=== PATIENT | female | born 1955 | race Caucasian/White ===

== ENCOUNTER 2021-08-12 14:28 | Outpatient (CLI) | payer BC, SELFPAY ==
--- NOTE | ~2021-08-12 | US_ITS ---
EXAMINATION: US venous doppler [facility] EXAM DATE: 08/12/2021 15:01 INDICATION: Left leg pain and swelling. TECHNIQUE: Multiple grayscale, color flow and Doppler images of the left lower extremity deep venous system were obtained and reviewed. There is no prior study for comparison. FINDINGS: The left common femoral, femoral and profunda veins demonstrate normal color flow, respirat ory variation, augmentation and compressibility. Compressibility, color flow confirmed within the le ft popliteal, posterior tibial, peroneal, and greater saphenous veins. IMPRESSION: No left lower extremity deep venous thrombosis. Reviewed, dictated and finalized at location A. [employer]
== END 2021-08-12 14:29 | disposition home or self-care (01) ==
PROVIDERS: PCP Internal Medicine; Visit Provider Registered Nurse
DX: M79.605 Pain in left leg (principal); M79.89 Other specified soft tissue disorders
CPT/HCPCS: 93971

== ENCOUNTER 2022-01-16 14:27 | Emergency (ER) | payer BC, SELFPAY ==
--- NOTE | ~2022-01-16 | XR_ITS ---
EXAMINATION: XR chest 2V DATE: 01/16/2022 15:22 INDICATION: Central chest pain TECHNIQUE: PA and lateral views of the chest are obtained. COMPARISON: 09/08/2008 FINDINGS: The lungs are free of acute opacities. There is no pleural effusion or pneumothorax. The ca rdiomediastinal silhouette is normal. There is moderate thoracic spondylosis. IMPRESSION: 1. No acute cardiopulmonary abnormality. Reviewed, dictated and finalized at location A.
[2022-01-16 14:40] VITALS: BP 172/70; PULSE 69; RESP 16; TEMP 36.5; O2SAT 98
--- NOTE | 2022-01-16 14:43 | ECG_ITS ---
Measurements Intervals [place] Rate: 66 P: 34 TX: 152 QRS: 29 QRSD: 89 T: 32 QT: 364 QTc: 384 Interpretive Statements SINUS RHYTHM LOW-VOLTAGE QRS IN PRECORDIAL LEADS BORDERLINE ECG NO PREVIOUS ECG AVAILABLE FOR COMPARISON Electronically Signed On 01-16-2022 15:01:47 CDT by Edilberto Kim M.D.
[2022-01-16 15:01] LABS: Basophils Percent Auto 0.4 % (0.2-1.2); Eosinophils Absolute Auto 0.1 K/mm3 (0-0.3); Eosinophils Percent Auto 1.9 % (0-4.4); Hemoglobin 12.6 g/dL (12.0-15.0); Immature Granulocyte Absolute 0.02 K/mm3 (0.00-0.031); Immature Granulocyte Percent A 0.3 % (0-0.5); Lymphocytes Absolute Auto 1.65 K/mm3 (0.9-3.2); Lymphocytes Percent Auto 23.9 % (18.3-44.2); Mean Corpuscular Hemoglobin 32.2 pg (26-34); Mean Corpuscular Volume 92.1 fl (80-100); Mean Platelet Volume 9.7 fl (7.4-10.4); Monocytes Absolute Auto 0.5 K/mm3 (0.1-0.6); Monocytes Percent Auto 7.4 % (2.6-8.5); Neutrophils Absolute Auto 4.6 K/mm3 (1.3-6.7); Neutrophils Percent Auto 66.1 % (45.5-73.1); Platelet Count Result 195 k/mm3 (150-375); Red Blood Count 3.91 M/mm3 (4.2-5.4); Red Cell Distribution Width 12.5 % (11.5-14.5); White Blood Count 6.9 K/mm3 (4.5-10.0)
[2022-01-16 15:12] LABS: Alanine Aminotransferase 23 U/L (6-35); Albumin Level 4.2 g/dL (3.5-5.1); Alkaline Phosphatase 88 U/L (38-126); Anion Gap 5 mmol/L (8-16); Aspartate Amino Transferase 28 U/L (14-36); Bilirubin,Total 0.3 mg/dL (0.2-1.3); Blood Urea Nitrogen 15 mg/dL (7-17); Calcium 9.3 mg/dL (8.4-10.2); Carbon Dioxide 27 mmol/L (22-30); Chloride 107 mmol/L (98-107); Estimated CRCL calculation 52 ml/min; Estimated Glomerular Filt Rate > 60; Glucose 143 mg/dL (65-110); Lipase 66 U/L (23-300); Partial Thromboplastin Time 27.9 SECONDS (22.3-36.8); Potassium 3.7 mmol/L (3.4-5.0); Prothrombin Time 12.9 Seconds (11.1-14.7); Sodium 139 mmol/L (137-145)
[2022-01-16 15:21] VITALS: BP 168/78; PULSE 68; RESP 18; O2SAT 99
[2022-01-16 15:24] LABS: Troponin I < 0.012 ng/mL (0.000-0.034)
[2022-01-16 15:42] LABS: Appearance Urine Clear (Clear); Bilirubin Urine Negative (Negative); Color Urine Yellow (Yellow); Glucose Urine UA Negative (Negative); Ketones Urine Negative (Negative); Leukocyte Esterase Ur 1+ LEU/UL (Negative); Nitrate Urine Negative (Negative); Protein Urine Negative (Negative); Specific Grav Ur 1.015 (1.001-1.035); Urobilinogen Urine 0.2 mg/dL (<2.0)
[2022-01-16 15:45] VITALS: BP 136/77; PULSE 61
[2022-01-16 15:46] VITALS: BP 184/97; BP 185/90; PULSE 70; PULSE 72
[2022-01-16 15:49] LABS: Mucus Urine Rare /lpf; RBC Urine 0-2 /hpf (0-2); Squamous Epithelial Cell Urine Rare /hpf (Few); WBC Urine 0-3 /hpf
--- NOTE | 2022-01-16 15:49 | ED.DIZZY ---
HPI - Dizziness General Chief Complaint: Dizziness Stated Complaint: dizziness Time Seen by Provider: 01/16/22 15:15 Source: patient Mode of arrival: ambulatory Limitations: no limitations History of Present Illness HPI Narrative: This is a 66-year-old female that presents to the emergency department for presyncopal episode today. 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 She started to feel a pressure in her chest. She then felt very lightheaded as if she were going to pass out. She sat down so she did not pass out. She does report history of syncopal episodes in the past. Denies any current symptoms. Denies fever, chest pain, shortness of breath, or palpitations. Related Data Allergies Allergy/AdvReac Type Severity Reaction Status Date / Time No Known Allergies Allergy Mild Unverified 09/17/08 09:47 Review of Systems Review of Systems: CONSTITUTIONAL: Denies fever CARDIOVASCULAR: Denies chest pain, palpitations, or edema. RESPIRATORY: Denies dyspnea. All systems reviewed & are unremarkable except as noted in HPI and below PMFSH Past Medical History Medical History (Updated 01/16/22 @ 18:22 by Narda Meeks PA-C) History of hyperlipidemia History of hypertension Social History Social History (Updated 01/16/22 @ 18:14 by Narda Meeks PA-C) Smoking status: Never smoker Exam Narrative: GENERAL: Well-appearing, well-nourished, and in no acute distress. HEAD: Normocephalic, atraumatic. EYES: PERRLA and EOMI. ENT: Nares clear, no rhinorrhea or epistaxis. Mucous membranes moist. Oropharynx without tonsillar hypertrophy exudate or other lesions. Bilateral TMs pearly win non-bulging NECK: Supple. No adenopathy or masses. No carotid bruits or JVD CHEST: Clear to auscultation. No respiratory distress. No wheezes rales or rhonchi HEART: Regular rate and rhythm. No murmur heard. Normal peripheral pulses. EXTREMITIES: Normal range of motion. No edema. Strength equal in bilateral in bilateral upper and lower extremities (5/5) SKIN: Warm, dry, no rash. NEURO: No focal deficits. Alert and oriented x3. Cranial nerves II through XII grossly intact PSYCH: Normal mood and affect Course Consultations Consultation #1: Spoke with patient's date pitter about work-up who agrees with Holter monitor and close follow-up in clinic Date: 01/16/22 Vital Signs Vital signs: Vital Signs Temperature 97.7 F 01/16/22 14:40 Pulse Rate 69 01/16/22 14:40 Respiratory Rate 16 01/16/22 14:40 Blood Pressure 172/70 H 01/16/22 14:40 Pulse Oximetry 98 01/16/22 14:40 Oxygen Delivery Room Air 01/16/22 14:40 Temperature 97.7 F 01/16/22 14:40 Pulse Rate 55 L 01/16/22 17:43 Respiratory Rate 18 01/16/22 17:43 Blood Pressure 141/70 H 01/16/22 17:43 Pulse Oximetry 100 01/16/22 17:43 Oxygen Delivery Room Air 01/16/22 15:21 MDM - Dizziness MDM Narrative Medical decision making narrative: Patient presents to the emergency department for a presyncopal episode today. Hypertensive upon arrival, this down trended on its own. Otherwise vitals are stable. CBC metabolic panel without concerning findings. EKG without concerning changes. Baseline and three hour troponin are negative. UA without evidence of infection. Chest x-ray without acute cardiopulmonary abnormality. Spoke with patient's date pitter about work-up who agrees with Holter monitor and close follow-up in clinic. Holter monitor was placed in the ED. Patient is stable and felt appropriate for further outpatient evaluation. She was given warnings to return to the ER Lab Data Attestation: I reviewed the patient's lab results. Result diagrams: 01/16/22 14:55 01/16/22 14:55 Labs: Lab Results 01/16/22 01/16/22 01/16/22 Range/Units 14:55 14:55 14:55 WBC 6.9 (4.5-10.0) K/mm3 RBC 3.91 L (4.2-5.4) M/mm3 Hgb 12.6 (12.0-15.0) g/dL Hct 36.0 L (37.0-47.0) % MCV 92.1 (80
[2022-01-16 16:05] LABS: Add Urine Microscopic? YES; Blood Urine Trace-Intact (Negative)
[2022-01-16] MEDS: SODIUM CHLORIDE 0.9% IV 500 ML 999 ML IV CONT (16:19)
[2022-01-16 17:43] VITALS: BP 141/70; PULSE 55; RESP 18; O2SAT 100
[2022-01-16 17:47] LABS: Hemoglobin A1C 4.9 % (<5.7)
[2022-01-16 18:05] LABS: Troponin I < 0.012 ng/mL (0.000-0.034)
[2022-01-16 18:51] VITALS: BP 141/70; PULSE 69; RESP 18; O2SAT 99
--- NOTE | 2022-01-23 12:02 | P.PCNHOL_ITS ---
Holter/Event Monitor Holter/Event Monitor Date of procedure: 01/23/22 Holter/Event Procedure: 48 Hr Holter Monitor Diagnosis: Palpitations Indications: Palpitations Image/Tracing Quality: Good quality Finding: The basic rhythm is sinus with normal CT QRS and QT intervals. The heart rate varies from a minimum of 48 to a maximum of 128. The average heart rate was 69. There were no abrupt pauses or abnormalities of AV conduction observed. Supraventricular ectopic activity was occasional consisting of PACs throughout the tracing. There were no episodes of atrial fibrillation. There was 110 beat run of SVT noted at 6:35 p.m. on the 2nd day of monitoring. This was pre seated and terminated by normal sinus rhythm. Ventricular ectopic activity was rare a total of 8 PVCs were seen during the entire 48 hour of monitoring The patient returned a diary in which no entries were made presumably she was asymptomatic Conclusion: 48 hour Holter monitor showing underlying sinus rhythm with normal heart rate variability and no pauses or conduction system abnormality. Rare ventricular ectopic activity was seen. Atrial ectopic activity was infrequent and did consist of 110 beat run of SVT as described above which apparently was asymptomatic Anuj Vallejo MD [facility]
== END 2022-01-16 18:52 | disposition home or self-care (01) ==
PROVIDERS: Physician Assistant; Emergency Provider Emergency Medicine; PCP Internal Medicine
DX: R55 Syncope and collapse (principal); E78.5 Hyperlipidemia, unspecified; I10 Essential (primary) hypertension; R94.31 Abnormal electrocardiogram [ECG] [EKG]
CPT/HCPCS: 36415; 71046; 80053; 81001; 83036; 83690; 84484; 85025; 85610; 85730; 93005; 93225; 93226; 96360; 99284; J7040

== ENCOUNTER 2022-04-21 01:03 | Day surgery (SDC) | payer MEDICARE, BC, SELFPAY ==
[2022-04-12 12:52] VITALS: BMI 26.1
[2022-04-21 08:09] VITALS: BP 130/75; PULSE 65; RESP 20; TEMP 36.4; O2SAT 100; BMI 26.1
[2022-04-21] MEDS: LACTATED RINGERS 1,000 ML 150 ML IV CONT (08:20)
--- NOTE | 2022-04-21 08:31 | WPDANESEPPF ---
Anes - Initial Pre Proc Eval Procedure: Operation Date: 04/21/22 09:00 Proposed Procedures p Esophagogastroduodenoscopy & Screening Colonoscopy - Antione Chavez MD Date/Time: 04/21/22 08:31 Surgeon: Antione Chavez MD Pre Op Diagnosis: neoplasm screening, epigastric pain Patient Data Age: 67 Gender: F Height: 1.68 m Weight: 73.4 kg Last Vital Signs Temp 97.6 F 04/21/22 08:09 Pulse 65 04/21/22 08:09 Resp 20 04/21/22 08:09 BP 130/75 04/21/22 08:09 Pulse Ox 100 04/21/22 08:09 O2 Del Method Room Air 04/21/22 08:09 Allergies Allergy/AdvReac Type Severity Reaction Status Date / Time No Known Allergies Allergy Mild Verified 04/21/22 08:08 Home Medications Medication Instructions Recorded Confirmed Type aspirin 81 mg tablet,delayed 81 mg PO DAILY 03/02/22 04/12/22 History release (Adult Aspirin Regimen) omeprazole 40 mg capsule,delayed 40 mg PO DAILY 03/02/22 04/12/22 History release amlodipine 2.5 mg tablet 2.5 mg PO DAILY 04/12/22 04/12/22 History atorvastatin 40 mg tablet 40 mg PO DAILY 04/12/22 04/12/22 History Patient hx anesthesia problems: none Family hx anesthesia problems: none Results Review: All pre-operative results and documents have been reviewed as part of the pre-operative evaluation. [facility] Past Medical History Medical History History of hyperlipidemia History of hypertension Social History Social History (Updated 03/02/22 @ 08:41 by April Smith MA) Smoking status: Former smoker Tobacco type: cigarettes Second hand tobacco smoke exposure: Yes Alcohol intake: current Drinks per week: 12 Alcohol use details: Beer/wine Substance use: never Substance use type: does not use Living arrangements: with family Gender identity (if verbalized by the patient): Female Spiritual care concerns: No Anes - Eval Final PreProcedure Day of Procedure 04/21/22 08:31 Patient weight: normal Heart: regular rate and rhythm Lungs: clear to auscultation Airway: Mallampati scale class II Neurological: alert and oriented Last oral intake: >/= 8 hours ASA classification: III Emergent: no Anesthetic plan: proceed Anesthesia type and monitoring: general GIVS and standard monitoring Results Review: All pre-operative results and documents have been reviewed as part of the pre-operative evaluation. Informed Consent: The patient's anesthetic plan and its attendant risks and benefits were discussed with the patient/family/POA. Questions were solicited and answers provided to the satisfaction of the patient/family/POA.
--- NOTE | 2022-04-21 08:50 | PM.IMHP ---
H&P: HPI History of Present Illness Date/Time: 04/21/22 08:50 Chief Complaint: Epigastric pain and neoplasia screening. Narrative: This is a 67-year-old white female patient who presents for neoplasia screening colonoscopy. Patient appears to be healthy. Weight appetite bowel movements are normal. She denies abdominal pain. She has had no bleeding. Last exam 11 years ago was unremarkable. Additionally patient has a history of vague substernal chest pressure. Because of pressure intensified she went to [facility] and had a cardiopulmonary arrest. Ultimate workup suggested this was precipitated by vasovagal reaction. Because of the substernal chest pressure and negative cardiac workup patient was placed on omeprazole for currently 40mg p.o. daily. She states the chest pressure has improved. Patient is referred today for EGD to assess more thoroughly. Patient denied overt heartburn. Patient has had no dysphagia. No bleeding. No weight loss. No reactions specific with foods. Review of Systems Review of Systems: Review of systems noncontributory. [facility] Past Medical History Medical History History of hyperlipidemia History of hypertension Social History Social History (Updated 03/02/22 @ 08:41 by April Smith MA) Smoking status: Former smoker Tobacco type: cigarettes Second hand tobacco smoke exposure: Yes Alcohol intake: current Drinks per week: 12 Alcohol use details: Beer/wine Substance use: never Substance use type: does not use Living arrangements: with family Gender identity (if verbalized by the patient): Female Spiritual care concerns: No Meds Home Medications and Allergies Home Medications Medication Instructions Recorded Confirmed Type aspirin 81 mg tablet,delayed 81 mg PO DAILY 03/02/22 04/12/22 History release (Adult Aspirin Regimen) omeprazole 40 mg capsule,delayed 40 mg PO DAILY 03/02/22 04/12/22 History release amlodipine 2.5 mg tablet 2.5 mg PO DAILY 04/12/22 04/12/22 History atorvastatin 40 mg tablet 40 mg PO DAILY 04/12/22 04/12/22 History Allergies Allergy/AdvReac Type Severity Reaction Status Date / Time No Known Allergies Allergy Mild Verified 04/21/22 08:08 Vital Signs Vital Signs - 24 hr 04/21/22 08:09 Temperature 97.6 F Pulse Rate 65 Respiratory Rate 20 Blood Pressure 130/75 Pulse Oximetry 100 Oxygen Delivery Room Air Exam Narrative: Physical exam reveals patient to be alert. Vital signs stable. HEENT exam is unremarkable. Patient is anicteric. Lungs are clear to auscultation and percussion. Heart is without murmur or extra sounds. Abdominal exam bowel sounds are present soft nontender with no hepatosplenomegaly. Digital external rectal exam is normal. Assessment and Plan Assessment and plan (1) Encounter for screening colonoscopy: Code(s): Z12.11 - Encounter for screening for malignant neoplasm of colon Status: Acute Assessment and Plan: Patient presents for neoplasia screening . appears to be at average risk for colon polyps. Further recommendations may be given after colonoscopy. (2) Atypical chest pain: Code(s): R07.89 - Other chest pain Status: Acute Assessment and Plan: Patient with atypical chest pain that is improved on treatment with omeprazole. Plan for anti-reflux measures an EGD to exclude any ongoing GI issues. Patient did have a cardiopulmonary event at the time this was being evaluated raising the question of additional cardiopulmonary issues. Currently felt to be resolved vasovagal symptoms.
[2022-04-21 09:28] VITALS: BP 114/63; PULSE 66; RESP 16; O2SAT 100
[2022-04-21 09:38] VITALS: BP 129/70; PULSE 60; RESP 18; O2SAT 99
[2022-04-21 09:48] VITALS: BP 125/76; PULSE 56; RESP 18; O2SAT 99
== END 2022-04-21 09:58 | disposition home or self-care (01) ==
PROVIDERS: PCP Internal Medicine; Visit Provider Internal Medicine Gastroenterology
PROC: 0DJ08ZZ Inspection of Upper Intestinal Tract, Via Natural or Artificial Opening Endoscopic (ICD-10-PCS; CPT 43235; principal; 2022-04-21 09:00)
DX: Z12.11 Encounter for screening for malignant neoplasm of colon (principal); D12.5 Benign neoplasm of sigmoid colon; K64.8 Other hemorrhoids; I10 Essential (primary) hypertension; E78.5 Hyperlipidemia, unspecified; Z87.891 Personal history of nicotine dependence; Z79.82 Long term (current) use of aspirin; R07.89 Other chest pain; R10.13 Epigastric pain
CPT/HCPCS: 45380; 45385; 43239; 87081; 88305; J2704; J7120

== ENCOUNTER 2023-09-18 10:21 | Emergency (ER) | payer MEDICARE, BC, SELFPAY ==
[2023-09-18 10:29] VITALS: BP 136/85; PULSE 89; RESP 16; TEMP 36.7; O2SAT 100
--- NOTE | 2023-09-18 10:58 | ED.URI ---
HPI - URI/Sore Throat General Chief Complaint: Upper Respiratory Infection Stated Complaint: FEVER/BODY ACHES/SORE THROAT/HEADACHE Time Seen by Provider: 09/18/23 10:49 Source: patient and RN notes reviewed Mode of arrival: ambulatory Limitations: no limitations History of Present Illness HPI Narrative: 68-year-old female presents with concern for sore throat, body aches, low-grade temperature, cough, or stuffy nose that started on Sunday. Reports she was around her granddaughter who was sick. She has been taking NyQuil. MD elicited complaint: cough and sore throat Related Data Home Medications Medication Instructions Recorded Confirmed aspirin 81 mg tablet,delayed 81 mg PO DAILY 03/02/22 09/18/23 release (Adult Aspirin Regimen) omeprazole 40 mg capsule,delayed 40 mg PO DAILY 03/02/22 09/18/23 release amlodipine 2.5 mg tablet 2.5 mg PO DAILY 04/12/22 09/18/23 atorvastatin 40 mg tablet 40 mg PO DAILY 04/12/22 09/18/23 Allergies Allergy/AdvReac Type Severity Reaction Status Date / Time No Known Allergies Allergy Mild Verified 09/18/23 10:29 Review of Systems Review of Systems: CONSTITUTIONAL: Reports malaise, sweats, fever. EYES: Denies visual changes, redness, or discharge. ENT: Reports rhinorrhea, congestion, and sore throat. CARDIOVASCULAR: Denies chest pain, palpitations, or edema. RESPIRATORY: Reports cough. Denies dyspnea. GASTROINTESTINAL: Denies abdominal pain, nausea, vomiting, diarrhea SKIN: Denies rash or itching. MUSCULOSKELETAL: Reports myalgia. NEUROLOGIC: Reports headache. All systems reviewed & are unremarkable except as noted in HPI and below PMFSH Past Medical History Medical History History of hyperlipidemia History of hypertension Social History Social History (Updated 03/02/22 @ 08:41 by April Smith MA) Smoking status: Former smoker Tobacco type: cigarettes Second hand tobacco smoke exposure: Yes Alcohol intake: current Drinks per week: 12 Alcohol use details: Beer/wine Substance use: never Substance use type: does not use Living arrangements: with family Occupation/Education: retired Gender identity (if verbalized by the patient): Female Spiritual care concerns: No Comments At time of signature, agree with nursing past medical, surgical, social and family history. There is no relevant family history pertinent to the presenting complaint Exam Narrative: GENERAL: Well-appearing, well-nourished, and in no acute distress. HEAD: Normocephalic EYES: PERRLA, conjunctivae clear ENT: Nares clear. Mucous membranes moist. TM pearly win with dull light reflex bilaterally; no tragal tenderness. Oropharynx erythematous without lesions. Tonsils not enlarged and without exudate, no drooling, no hoarseness, no trismus, uvula midline. NECK: Supple. No lymphadenopathy CHEST: Clear to auscultation, breath sounds equal. No wheezing, rhonchi, rales, or stridor. No respiratory distress, speaks in full sentences. HEART: Regular rate and rhythm. No murmur heard. SKIN: Warm, dry, no rash. NEURO: Alert and oriented x3. PSYCH: Normal mood and affect Course Course Emergency Course: Patient is aware of diagnosis, understands and agrees to treatment plan. Anticipatory guidance given. Patient agrees to follow-up as directed and is aware of reasons to seek care at the emergency department. Portions of this record may have been created with voice recognition software Level of Care: Express Care Visit Vital Signs Vital signs: Vital Signs Temperature 98.1 F 09/18/23 10:29 Pulse Rate 89 09/18/23 10:29 Respiratory Rate 16 09/18/23 10:29 Blood Pressure 136/85 09/18/23 10:29 Pulse Oximetry 100 09/18/23 10:29 Temperature 98.1 F 09/18/23 10:29 Pulse Rate 89 09/18/23 10:29 Respiratory Rate 16 09/18/23 10:29 Blood Pressure 136/85 09/18/23 10:29 Pulse Oximetry 100 09/18
== END 2023-09-18 11:12 | disposition home or self-care (01) ==
PROVIDERS: Emergency Provider Nurse Practitioner; PCP Internal Medicine
DX: J02.9 Acute pharyngitis, unspecified (principal); J06.9 Acute upper respiratory infection, unspecified; Z20.822 Contact with and (suspected) exposure to COVID-19; Z87.891 Personal history of nicotine dependence; E78.5 Hyperlipidemia, unspecified; I10 Essential (primary) hypertension; Z79.82 Long term (current) use of aspirin
CPT/HCPCS: 87081; 87426; 87804; 87880; 99213; G0463